=== PATIENT | male | born 1945 | race Two or more races ===

== ENCOUNTER 2019-10-18 11:05 | Inpatient (IN) | payer OTHER ==
[~2019-10-18] VITALS: Ht 162.6 cm; Wt 61.7 kg
[2019-10-18] MEDS ORDERED: NEURONTIN (11:12)
[2019-10-18] MEDS ORDERED: PHOSPHASAL TAB1 EACH (11:14)
[2019-10-24] MEDS ORDERED: CODE1TAB37 PO (08:48)
[2019-10-24] MEDS ORDERED: MAGNESIUM OXID500 MG PO (08:49)
[2019-10-24] MEDS ORDERED: GABAPENTIN100 M2 PO (08:49)
[2019-10-24] MEDS ORDERED: DULCOLAX5 MG PO (08:49)
[2019-10-24] MEDS ORDERED: ULTRAM50 MG PO (08:49)
[2019-10-24] MEDS ORDERED: PANTOPRAZOLE SO40 MG PO (08:49)
== END 2019-10-23 10:55 | disposition home or self-care (01) | DRG 331 ==
LOC: ER 11:05 → SURH 11:39
PROVIDERS: ADMIT Colon & Rectal Surgery; ATTEND Colon & Rectal Surgery
PROC: 0D1L4Z4 Bypass Transverse Colon to Cutaneous, Percutaneous Endoscopic Approach (ICD-10-PCS; principal; 2019-10-19)
PROC: 0DNL4ZZ Release Transverse Colon, Percutaneous Endoscopic Approach (ICD-10-PCS; 2019-10-19)
DX: K62.6 Ulcer of anus and rectum (principal); K63.89 Other specified diseases of intestine; R10.2 Pelvic and perineal pain; K66.0 Peritoneal adhesions (postprocedural) (postinfection)

== ENCOUNTER 2019-10-24 08:34 | Emergency (ER) | payer OTHER ==
[~2019-10-24] VITALS: Ht 167.6 cm; Wt 61.7 kg
[~2019-10-24 08:34] MED LIST: NEURONTIN; PHOSPHASAL TAB1 EACH
[2019-10-24] MEDS ORDERED: CODE1TAB37 PO (08:48)
[2019-10-24] MEDS ORDERED: PANTOPRAZOLE SO40 MG PO (08:49)
[2019-10-24] MEDS ORDERED: DULCOLAX5 MG PO (08:49)
[2019-10-24] MEDS ORDERED: GABAPENTIN100 M2 PO (08:49)
[2019-10-24] MEDS ORDERED: ULTRAM50 MG PO (08:49)
[2019-10-24] MEDS ORDERED: MAGNESIUM OXID500 MG PO (08:49)
== END 2019-10-24 12:50 | disposition home or self-care (01) ==
LOC: ER 08:34
DX: K94.09 Other complications of colostomy (principal)

== ENCOUNTER 2019-11-15 12:12 | Emergency (ER) | payer OTHER ==
[~2019-11-15] VITALS: Ht 167.6 cm; Wt 63.0 kg
[~2019-11-15 12:12] MED LIST changes: +CODE1TAB37 PO; +DULCOLAX5 MG PO; +GABAPENTIN100 M2 PO; +MAGNESIUM OXID500 MG PO; +PANTOPRAZOLE SO40 MG PO; +ULTRAM50 MG PO
== END 2019-11-15 22:07 | disposition home or self-care (01) ==
LOC: ER 12:12
DX: R33.8 Other retention of urine (principal); K94.29 Other complications of gastrostomy

== ENCOUNTER 2020-03-21 09:00 | Inpatient (IN) | payer OTHER | END 2020-04-01 10:42 | disposition home or self-care (01) | DRG 329 | LOC: SURH 03-28 05:41 → O/R 03-28 05:41 → SURH 03-28 07:00 | PROVIDERS: ADMIT Colon & Rectal Surgery; ATTEND Colon & Rectal Surgery | PROC: 4A033R1 Measurement of Arterial Saturation, Peripheral, Percutaneous Approach (ICD-10-PCS; 2020-03-28) | PROC: 3E0F7GC Introduction of Other Therapeutic Substance into Respiratory Tract, Via Natural or Artificial Opening (ICD-10-PCS; 2020-03-28) | PROC: 0DQB4ZZ Repair Ileum, Percutaneous Endoscopic Approach (ICD-10-PCS; principal; 2020-03-28 07:00) | DX: Z43.2 Encounter for attention to ileostomy (principal); B37.1 Pulmonary candidiasis; J95.89 Other postprocedural complications and disorders of respiratory system, not elsewhere classified; Z20.828 Contact with and (suspected) exposure to other viral communicable diseases ==